=== PATIENT | male | born 1990 | race Caucasian/White ===

== ENCOUNTER 2020-02-11 10:55 | Emergency (ER) | payer OTHER ==
[~2020-02-11] VITALS: Ht 188 cm; Wt 117.0 kg
[~2020-02-11 10:55] MED LIST: AMOXICILLIN 50500 MG PO; BACTRIM DS TAB1 EAC1 PO; BENTYL 20 MG TA20 M1 PO; IBUPROFEN 600600 M1 PO; KEFLEX500 MG PO; MEDROL DOSPAK21 TA1 PO; NAPROXEN 500MG500 MG PO; NOHOMEMEDICATIONS; PHENERGAN 25 MG25 M1 PO; ROBAXIN500 MG PO; TRIAMCINOLONE A80 G2 TOP; ZANTAC 7575 MG PO; ZOFRAN ODT4 MG PO
[2020-02-11] MEDS ORDERED: FLEXERIL PO (11:48)
[2020-02-11] MEDS ORDERED: PREDNISONE50 MG PO (11:48)
[2020-02-11] MEDS ORDERED: IBUPROFEN 800800 M1 PO (11:48)
[2020-02-11] MEDS ORDERED: NORCO 5-325 TA1 EAC2 PO (11:48)
[2020-02-11 11:55] VITALS: BP 135/70
== END 2020-02-11 11:56 | disposition home or self-care (01) ==
LOC: M.ERS 10:55
DX: M54.32 Sciatica, left side (principal); F17.210 Nicotine dependence, cigarettes, uncomplicated

== ENCOUNTER 2021-05-12 13:48 | Emergency (ER) | payer OTHER ==
[~2021-05-12] VITALS: Ht 188 cm; Wt 117.9 kg
[~2021-05-12 13:48] MED LIST changes: +FLEXERIL PO; +IBUPROFEN 800800 M1 PO; +NORCO 5-325 TA1 EAC2 PO; +PREDNISONE50 MG PO
[2021-05-12 15:09] LABS: URINE BLOOD NEGATIVE (Negative); URINE CLARITY CLEAR; URINE COLOR YELLOW; URINE GLUCOSE-RANDOM NEGATIVE (Negative); URINE KETONES NEGATIVE (Negative); URINE LEUKOCYTES-REFLEX NEGATIVE (Negative); URINE NITRITE-REFLEX NEGATIVE (Negative); URINE PROTEIN TRACE (Negative); URINE SPECIFIC GRAVITY 1.025 (1.005-1.030); URINE UROBILINOGEN 0.2 E.U./dl (0.2-1.0)
[2021-05-12 15:12] LABS: ICTOTEST (BILI CONFIRMATORY) Negative (Negative); URINE BILIRUBIN 1+ (Negative)
[2021-05-12 15:17] LABS: AMP/METHAMP Negative (Negative); BARBITURATES Negative (Negative); BENZODIAZEPINES Negative (Negative); COCAINE Negative (Negative)
[2021-05-12 15:18] LABS: METHADONE Negative (Negative); OPIATES Negative (Negative); PCP Negative (Negative); THC POSITIVE (Negative)
[2021-05-12 16:36] LABS: ABSOLUTE EOSINOPHILS 0.1 thou/uL (0.0-0.7); ABSOLUTE LYMPHOCYTES 1.4 thou/uL (0.8-5.3); ABSOLUTE MONOCYTES 0.7 thou/uL (0.0-1.2); ABSOLUTE NEUTROPHILS 5.7 thou/uL (1.6-8.1); BASOPHILS 0.5 %; EOSINOPHILS 1.2 %; HEMATOCRIT 47.3 % (42.0-52.0); LYMPHOCYTES 17.2 %; MCH 28.4 pg (26.0-34.0); MCHC 33.9 g/dL (28.0-37.0); MCV 83.8 fL (80.0-100.0); MONOCYTES 8.9 %; NUCLEATED RBCS 0 /100WBC; PLATELET COUNT* 158 thou/uL (150-400); POLYS 72.2 %; RBC 5.64 mil/uL (4.50-6.00); WBC 7.9 thou/uL (4.0-11.0)
[2021-05-12 16:46] LABS: ANION GAP 11 mmol/L (7-16); BUN 18 mg/dL (7-18); CALCIUM 9.1 mg/dL (8.5-10.1); CHLORIDE 102 mmol/L (98-107); CO2 25 mmol/L (21-32); CREATININE 1.2 mg/dL (0.6-1.3); GLUCOSE 108 mg/dL (70-99); POTASSIUM 3.3 mmol/L (3.5-5.1); SODIUM 138 mmol/L (136-145)
[2021-05-12 16:51] LABS: ALBUMIN 4.1 g/dL (3.4-5.0); ALKALINE PHOSPHATASE 71 U/L (46-116); LIPASE < 10 U/L (73-393); SGOT 29 U/L (15-37); SGPT 46 U/L (30-65); TOTAL BILIRUBIN 0.9 mg/dL (<0.1-1.0); TOTAL PROTEIN 8.1 g/dL (6.4-8.2)
[2021-05-12] MEDS ORDERED: ZOFRAN ODT4 MG PO (17:47)
[2021-05-12 18:01] VITALS: BP 119/84
--- NOTE | 2021-05-13 10:37 | EKG ---
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
== END 2021-05-12 18:02 | disposition home or self-care (01) ==
LOC: M.ERS 13:48
PROVIDERS: Physician Assistant
DX: R11.2 Nausea with vomiting, unspecified (principal); Z20.822 Contact with and (suspected) exposure to COVID-19; F17.210 Nicotine dependence, cigarettes, uncomplicated